=== PATIENT | male | born 1955 | race Caucasian/White ===

== ENCOUNTER 2016-11-29 07:32 | Inpatient (IN) | payer BC ==
[2016-11-28] MEDS: ROPIVACAINE 0.2% 550 ML INJ SCH (20:00)
[~2016-11-29] VITALS: Ht 177.8 cm; Wt 93.4 kg
[2016-11-29] MEDS ORDERED: TRANEXAMIC ACID 650 MG TABLET PO ONE (08:00)
[2016-11-29] MEDS ORDERED: ACETAMINOPHEN 500 MG TABLET PO ONE (08:00)
[2016-11-29] MEDS ORDERED: GABAPENTIN 300 MG CAPSULE PO ONE (08:00)
[2016-11-29] MEDS ORDERED: oxyCODONE HCL 10 MG TAB.ER.12H PO ONE ×2 (08:00→08:07)
[2016-11-29] MEDS ORDERED: CEFAZOLIN 2 GM IVPB PREMIX 50 ML IV ONE (08:00)
[2016-11-29] MEDS ORDERED: NACL 0.9% 1,000 ML IV ONE (08:00)
[2016-11-29] MEDS ORDERED: CELECOXIB 200 MG CAPSULE PO ONE (08:00)
[2016-11-29] MEDS ORDERED: CELECOXIB 200 MG CAPSULE ONE (08:05)
[2016-11-29] MEDS ORDERED: GABAPENTIN 300 MG CAPSULE ONE (08:05)
[2016-11-29] MEDS ORDERED: ACETAMINOPHEN 500 MG TABLET ONE (08:06)
[2016-11-29] MEDS ORDERED: TRANEXAMIC ACID 650 MG TABLET ONE (08:07)
[2016-11-29] MEDS ORDERED: KETOROLAC TROMETHAMINE 30 MG VIAL ONE (08:15)
[2016-11-29] MEDS ORDERED: ROPIVACAINE 0.2% 550 ML INJ SCH (10:09)
[2016-11-29] MEDS ORDERED: ONDANSETRON HCL 4 MG/2 ML VIAL IVP PRN ×3 (10:15→11:15)
[2016-11-29] MEDS ORDERED: oxyCODONE HCL 5 MG TABLET PO PRN ×2 (10:15)
[2016-11-29] MEDS ORDERED: PROMETHAZINE HCL 25 MG/ML AMP IVP PRN (10:15)
[2016-11-29] MEDS ORDERED: DIPHENHYDRAMINE HCL 50 MG CAPSULE PO PRN (10:15)
[2016-11-29] MEDS ORDERED: POLYMYXIN 500,000/BACIT.10,000 UNITS in NS IRR 1 L IR ONE (10:32)
[2016-11-29] MEDS ORDERED: LR 1,000 ML IV SCH (11:04)
[2016-11-29] MEDS ORDERED: DIPHENHYDRAMINE INJ 50 MG/ML VIAL IVP PRN (11:15)
[2016-11-29] MEDS ORDERED: NALBUPHINE HCL 10 MG/ML AMP IVP PRN (11:15)
[2016-11-29] MEDS ORDERED: MEPERIDINE HCL/PF 25 MG/ML DISP.SYRIN IVP PRN ×2 (11:15)
[2016-11-29] MEDS ORDERED: HYDROmorphone 1 MG INJ. 1 MG/ML AMPUL IVP PRN ×2 (11:15)
[2016-11-29] MEDS ORDERED: HYDROmorphone 2 MG/ML VIAL IVP PRN ×2 (11:15)
[2016-11-29] MEDS: CEFAZOLIN 1 GM IVPB PREMIX 50 ML IV SCH ×2 (12:00→20:51)
[2016-11-29] MEDS ORDERED: HYDROmorphone 1 MG INJ. 1 MG/ML AMPUL ONE (13:20)
[2016-11-29] MEDS ORDERED: HYDROmorphone 2 MG/ML VIAL ONE (13:27)
[2016-11-29] MEDS ORDERED: LABETALOL 100 MG/ 20ML VIAL IVP PRN (13:45)
[2016-11-29] MEDS ORDERED: LABETALOL 100 MG/ 20ML VIAL ONE (13:51)
[2016-11-29 14:55] VITALS: BP_SYST 152
[2016-11-29] MEDS: ACETAMINOPHEN 500 MG TABLET PO SCH ×2 (15:00→20:52)
[2016-11-29 15:38] VITALS: BP_SYST 132
[2016-11-29 16:04] VITALS: BP_SYST 132
[2016-11-29] MEDS: D5LR 1,000 ML IV SCH ×2 (16:19→20:09)
[2016-11-29] MEDS: KETOROLAC TROMETHAMINE 30 MG VIAL IVP PRN (16:43)
[2016-11-29 20:37] VITALS: BP_SYST 147
[2016-11-29] MEDS: GABAPENTIN 300 MG CAPSULE PO SCH (20:51)
[2016-11-29] MEDS: CELECOXIB 200 MG CAPSULE PO SCH (20:52)
[2016-11-29] MEDS: MORPHINE 4 MG/ML INJ. SYRINGE IVP PRN (21:01)
[2016-11-29 23:36] VITALS: BP_SYST 131
[2016-11-30 03:36] VITALS: BP_SYST 138
[2016-11-30] MEDS: CEFAZOLIN 1 GM IVPB PREMIX 50 ML IV SCH (03:48)
[2016-11-30] MEDS: KETOROLAC TROMETHAMINE 30 MG VIAL IVP PRN ×2 (03:48→18:45)
[2016-11-30] MEDS: D5LR 1,000 ML IV SCH ×3 (04:38→23:40)
[2016-11-30 06:37] LABS: CALCIUM 8.8 mg/dL (8.4-11.0); CREATININE 0.9 mg/dL (0.55-1.30); POTASSIUM 4.5 mmol/L (3.5-5.1)
[2016-11-30 06:47] LABS: BASOPHILS % (AUTO) 0.1 % (0.0-2.0); EOSINOPHILS % (AUTO) 0.3 % (0.0-4.0); HEMATOCRIT 36.9 % (36-54); HEMOGLOBIN 12.3 g/dL (14.0-18.0); LYMPHOCYTES # (AUTO) 1.3 K/uL (1.0-5.5); LYMPHOCYTES % (AUTO) 10.8 % (20.5-51.5); MEAN CORPUSCULAR HEMOGLOBIN 31 pg (27-31); MEAN CORPUSCULAR HGB CONC 33 % (32-36); MEAN CORPUSCULAR VOLUME 92 fL (79.0-98.0); MONOCYTES # (AUTO) 1.1 K/uL (0.0-1.0); MONOCYTES % (AUTO) 8.6 % (1.7-9.3); NEUTROPHILS # (AUTO) 9.8 K/uL (1.8-7.7); NEUTROPHILS % (AUTO) 80.2 % (40.0-70.0); PLATELET COUNT (AUTO) 240 K/uL (130-430); RED BLOOD CELL COUNT(AUTO) 4.02 MIL/uL (4.2-6.2); RED CELL DISTRIBUTION WIDTH 12.1 % (9.0-15.0); WHITE BLOOD COUNT (AUTO) 12.2 K/uL (4.8-10.8)
[2016-11-30] MEDS: CELECOXIB 200 MG CAPSULE PO SCH ×2 (08:07→20:39)
[2016-11-30] MEDS: ACETAMINOPHEN 500 MG TABLET PO SCH ×3 (08:08→20:41)
[2016-11-30] MEDS: MORPHINE 4 MG/ML INJ. SYRINGE IVP PRN ×2 (08:38→20:39)
[2016-11-30] MEDS: RIVAROXABAN 10 MG TABLET PO SCH (10:40)
[2016-11-30] MEDS: ROPIVACAINE 0.2% 550 ML INJ SCH (11:06)
[2016-11-30 12:00] VITALS: BP_SYST 120
[2016-11-30 18:07] VITALS: BP_SYST 117
[2016-11-30 19:45] VITALS: BP_SYST 158
[2016-11-30] MEDS: GABAPENTIN 300 MG CAPSULE PO SCH (20:39)
[2016-12-01] VITALS: BP_SYST 148
[2016-12-01] MEDS ORDERED: TRANEXAMIC ACID 1,000 MG/10 ML VIAL IV SCH
[2016-12-01] MEDS: MORPHINE 4 MG/ML INJ. SYRINGE IVP PRN ×2 (03:32→09:22)
[2016-12-01 03:40] VITALS: BP_SYST 160
[2016-12-01 06:33] LABS: BASOPHILS % (AUTO) 0.4 % (0.0-2.0); EOSINOPHILS # (AUTO) 0.2 K/uL (0.0-0.4); EOSINOPHILS % (AUTO) 1.6 % (0.0-4.0); HEMATOCRIT 36.4 % (36-54); LYMPHOCYTES # (AUTO) 1.3 K/uL (1.0-5.5); LYMPHOCYTES % (AUTO) 13.3 % (20.5-51.5); MEAN CORPUSCULAR HEMOGLOBIN 30 pg (27-31); MEAN CORPUSCULAR HGB CONC 33 % (32-36); MEAN CORPUSCULAR VOLUME 91 fL (79.0-98.0); MONOCYTES % (AUTO) 10.4 % (1.7-9.3); NEUTROPHILS # (AUTO) 7.1 K/uL (1.8-7.7); NEUTROPHILS % (AUTO) 74.3 % (40.0-70.0); PLATELET COUNT (AUTO) 235 K/uL (130-430); RED BLOOD CELL COUNT(AUTO) 4.02 MIL/uL (4.2-6.2); RED CELL DISTRIBUTION WIDTH 12.3 % (9.0-15.0); WHITE BLOOD COUNT (AUTO) 9.6 K/uL (4.8-10.8)
[2016-12-01 06:48] LABS: CALCIUM 8.4 mg/dL (8.4-11.0); CREATININE 0.94 mg/dL (0.55-1.30); POTASSIUM 3.9 mmol/L (3.5-5.1)
[2016-12-01] MEDS: RIVAROXABAN 10 MG TABLET PO SCH (08:45)
[2016-12-01] MEDS: CELECOXIB 200 MG CAPSULE PO SCH (08:45)
[2016-12-01] MEDS: ACETAMINOPHEN 500 MG TABLET PO SCH (08:45)
[2016-12-01 12:00] VITALS: BP_SYST 166
[2016-12-01 13:43] VITALS: BP_SYST 148
== END 2016-12-01 17:20 | disposition home health service (06) | DRG 470 ==
LOC: SMU 07:32 → STU 14:56 → SMU 11-30 12:59
PROVIDERS: ADMIT Orthopaedic Surgery; ATTEND Orthopaedic Surgery
PROC: 3E0T3CZ (ICD-10-PCS; 2016-11-29)
PROC: 0SRC0J9 Replacement of Right Knee Joint with Synthetic Substitute, Cemented, Open Approach (ICD-10-PCS; principal; 2016-11-29 09:30)
DX: M17.11 Unilateral primary osteoarthritis, right knee (principal); I10 Essential (primary) hypertension
CPT/HCPCS: 36415; 80048; 85025; 87081; 88305; 88311; 97039; 97110-GP; 97116-GP; 97530-GP; C1713; C1776; J0690; J1170; J1885; J2270; J2795; J3490; J7120; Q0163